=== PATIENT | male | born 1945 | race African-American/Black ===

== ENCOUNTER 2019-09-16 15:58 | Inpatient (IN) | payer MEDICARE, BC ==
[~2019-09-16] VITALS: Ht 182.9 cm; Wt 58.1 kg
[2019-09-16] MEDS ORDERED: LORAZEPAM 2MG/ML CPJ IV ONE ×2 (16:30→20:00)
[2019-09-16] MEDS ORDERED: HALOPERIDOL LACTATE 5MG/ML VIAL IM ONE (16:30)
[2019-09-16 17:15] LABS: HEMATOCRIT. 39.3 % (42.0-52.0); HEMOGLOBIN. 12.6 g/dL (14.0-18.0); MEAN CORPUSCULAR HEMOGLOBIN 26.7 pg (28.0-32.0); MEAN PLATELET VOLUME 8.3 fl (7.4-10.4); PLATELET 207 x1000/uL (130-400); RED BLOOD CELL COUNT 4.74 mill/uL (4.7-6.1); RED CELL DISTRIBUTION WIDTH 19.9 % (11.6-14.6)
[2019-09-16 17:21] LABS: PROTHROMBIN TIME 10.6 sec (9.6-11.0)
[2019-09-16 17:22] LABS: CHLORIDE 111 mEq/L (98-107)
[2019-09-16 17:29] LABS: ETHANOL BLOOD < 10 mg/dL
[2019-09-16 17:31] LABS: LDL CHOLESTEROL 82 mg/dL (5-100)
[2019-09-16 17:32] LABS: CREATINE KINASE 568 IU/L (39-308)
[2019-09-16] MEDS ORDERED: SODIUM CHLORIDE 0.9% 500 ML IV ONE ×2 (17:45→20:30)
[2019-09-16] MEDS ORDERED: ONDANSETRON HCL 4MG/2ML INJ IV ONE (17:45)
[2019-09-16] MEDS ORDERED: ASPIRIN 300MG SUPP PR ONE (18:00)
[2019-09-16 18:05] LABS: CLARITY URINE CLOUDY (CLEAR); COLOR URINE YELLOW (YELLOW); KETONES URINE NEGATIVE (NEGATIVE); LEUKOCYTE ESTERASE URINE TRACE (NEGATIVE); NITRITE URINE NEGATIVE (NEGATIVE); OCCULT BLOOD URINE 1+ (NEGATIVE); PROTEIN URINE 1+ (NEGATIVE); SPECIFIC GRAVITY URINE 1.016 (1.005-1.030); UROBILINOGEN URINE 0.2 E.U./dL (0.2-1.0)
[2019-09-16 18:10] LABS: PLATELET ESTIMATE NORMAL
[2019-09-16 18:18] LABS: *AMPHETAMINES SCREEN URINE NEGATIVE (NEGATIVE); *BARBITURATES SCREEN URINE NEGATIVE (NEGATIVE); *BENZODIAZEPINES SCREEN URINE NEGATIVE (NEGATIVE); *COCAINE SCREEN URINE NEGATIVE (NEGATIVE)
[2019-09-16 18:19] LABS: CANNABINOID URINE SCREEN PRESUMTIVE POSITIVE (NEGATIVE); METHADONE URINE SCREEN NEGATIVE (NEGATIVE); OPIATES URINE SCREEN NEGATIVE (NEGATIVE); PHENCYCLIDINE URINE SCREEN NEGATIVE (NEGATIVE)
[2019-09-16 18:24] LABS: BG BASE EXCESS -3.5 mmol/L (-2.0-2.0); BG CARBOXYHEMOGLOBIN 1.1 % (0.5-1.5); BG DEOXYHEMOGLOBIN 4.1 % (0.0-5.0); BG FRACTION INSPIRED OXYGEN 32; BG HCO3 ACT 23.9 mmol/L (22.0-26.0); BG METHEMOGLOBIN 0.2 % (0.0-1.5); BG OXYGEN SATURATION 95.8 % (92.0-98.5); BG OXYHEMOGLOBIN 94.6 % (94.0-97.0); BG PH 7.272 (7.350-7.450); BG PO2 91.7 mmHg (75.0-100.0); BG SAMPLE SITE RIGHT RADIAL; BG TOTAL HEMOGLOBIN 13.5 g/dL (12.0-18.0); BG VENT MODE NASAL CANNULA
[2019-09-16] MEDS ORDERED: LORAZEPAM 2MG/ML CPJ ONE (19:53)
[2019-09-16] MEDS ORDERED: PROPOFOL 10MG/ML 100ML 100 ML IV SCH (20:00)
[2019-09-16] MEDS ORDERED: IPRATROPIUM/ALBUTEROL 0.5-3(2.5)MG/3ML NEB NEB PRN (20:15)
[2019-09-16] MEDS ORDERED: LORAZEPAM 2MG/ML CPJ IV PRN (20:15)
[2019-09-16] MEDS ORDERED: DOCUSATE SODIUM 100MG CAPSULE PO PRN (20:15)
[2019-09-16] MEDS ORDERED: GUAIFENESIN 200MG/10ML SUGAR FREE UDC PO PRN (20:15)
[2019-09-16] MEDS ORDERED: HYDROCODONE/ACETAMINOPHEN 5/325MG TABLET PO PRN (20:15)
[2019-09-16] MEDS ORDERED: DIPHENHYDRAMINE 50MG/ML VIAL IV PRN (20:15)
[2019-09-16] MEDS ORDERED: ONDANSETRON HCL 4MG/2ML INJ IV PRN (20:15)
[2019-09-16] MEDS ORDERED: MAGNESIUM/ALUMINUM HYDROXIDE/SIMETHICONE 30ML UDC PO PRN (20:15)
[2019-09-16 20:51] LABS: BG BASE EXCESS -4.8 mmol/L (-2.0-2.0); BG CARBOXYHEMOGLOBIN 0.9 % (0.5-1.5); BG DEOXYHEMOGLOBIN 0.4 % (0.0-5.0); BG FRACTION INSPIRED OXYGEN 80; BG HCO3 ACT 21.7 mmol/L (22.0-26.0); BG METHEMOGLOBIN 0.4 % (0.0-1.5); BG OXYGEN SATURATION 99.6 % (92.0-98.5); BG OXYHEMOGLOBIN 98.3 % (94.0-97.0); BG PCO2 45.8 mmHg (35.0-45.0); BG PH 7.293 (7.350-7.450); BG PO2 291.2 mmHg (75.0-100.0); BG SAMPLE SITE RIGHT BRACHIAL; BG TIDAL VOLUME(mL) 500 mL; BG TOTAL HEMOGLOBIN 12.6 g/dL (12.0-18.0); BG VENT MODE VENT - A/C; BG VENT RATE 16 set
[2019-09-16] MEDS ORDERED: NA PHOS,M-B/NA PHOS,DI-BA ENEMA 118ML PR PRN (21:00)
[2019-09-16 23:16] LABS: CHLORIDE 114 mEq/L (98-107)
[2019-09-16] MEDS ORDERED: ENOXAPARIN 40MG/0.4ML SYR SUBCUT NR (23:45)
[2019-09-16] MEDS ORDERED: LEVOFLOXACIN 500MG PREMIX 100 ML IV NR (23:45)
[2019-09-17] VITALS (51 sets, daily range): BP systolic 112–184; BP diastolic 57–103
[2019-09-17] MEDS: DEXT 5%/0.45% NACL 1000ML 1,000 ML IV SCH (00:17)
[2019-09-17 02:40] LABS: BG BASE EXCESS -3.3 mmol/L (-2.0-2.0); BG CARBOXYHEMOGLOBIN 0.1 % (0.5-1.5); BG DEOXYHEMOGLOBIN 2.2 % (0.0-5.0); BG FRACTION INSPIRED OXYGEN 40; BG HCO3 ACT 21.6 mmol/L (22.0-26.0); BG OXYGEN SATURATION 97.8 % (92.0-98.5); BG OXYHEMOGLOBIN 97.7 % (94.0-97.0); BG PCO2 38.4 mmHg (35.0-45.0); BG PH 7.368 (7.350-7.450); BG PO2 105.6 mmHg (75.0-100.0); BG SAMPLE SITE RIGHT RADIAL; BG TIDAL VOLUME(mL) 500 mL; BG TOTAL HEMOGLOBIN 12.4 g/dL (12.0-18.0); BG VENT MODE VENT - A/C; BG VENT RATE 16 set
[2019-09-17] MEDS: PROPOFOL 10MG/ML 100ML 100 ML IV PRN ×4 (04:07→20:29)
[2019-09-17 06:23] LABS: HEMATOCRIT. 38.5 % (42.0-52.0); HEMOGLOBIN. 12.5 g/dL (14.0-18.0); MEAN CORPUSCULAR HEMOGLOBIN 26.9 pg (28.0-32.0); MEAN PLATELET VOLUME 8.5 fl (7.4-10.4); PLATELET 181 x1000/uL (130-400); RED BLOOD CELL COUNT 4.63 mill/uL (4.7-6.1); RED CELL DISTRIBUTION WIDTH 20.1 % (11.6-14.6)
[2019-09-17 06:36] LABS: CHLORIDE 113 mEq/L (98-107)
[2019-09-17 06:44] LABS: HDL CHOLESTEROL 36 mg/dL (40-59); LDL CHOLESTEROL 75 mg/dL (5-100)
[2019-09-17] MEDS: ASPIRIN 81MG EC TABLET PO SCH (08:36)
[2019-09-17] MEDS: ACETAMINOPHEN 325MG TABLET PO PRN ×2 (09:21→21:22)
[2019-09-17] MEDS: CLONIDINE 0.1MG TABLET PO PRN ×2 (09:22→20:10)
[2019-09-17] MEDS: MORPHINE SULFATE 2 MG/ML CPJ (NOT FOR IM USE) IV PRN ×2 (11:25→22:09)
[2019-09-17] MEDS ORDERED: IOHEXOL-350 100 ML BOTTLE ONE (11:41)
[2019-09-17] MEDS ORDERED: GADOBENATE DIMEGLUMINE 529 MG/ML 10ML IV ONE (12:01)
[2019-09-17 12:28] LABS: PLATELET ESTIMATE NORMAL
[2019-09-17] MEDS: BUDESONIDE 0.5MG/2ML NEB HHN SCH ×2 (13:00→20:16)
[2019-09-17] MEDS ORDERED: PIPERACILLIN/TAZOBACTAM 3.375 G/VIAL IV SCH (14:00)
[2019-09-17] MEDS: PIPERACILLIN/TAZOBACTAM 3.375 G in DEXT 5% WATER 100 ML IV SCH ×2 (14:12→21:01)
[2019-09-17] MEDS: IPRATROPIUM/ALBUTEROL 0.5-3(2.5)MG/3ML NEB HHN SCH ×2 (15:00→20:16)
[2019-09-17] MEDS ORDERED: LEVOFLOXACIN 500MG PREMIX 100 ML IV SCH (21:00)
[2019-09-17] MEDS: ENOXAPARIN 40MG/0.4ML SYR SUBCUT SCH (21:02)
[2019-09-17] MEDS ORDERED: PROPOFOL 10MG/ML 100ML 100 ML IV PRN (23:45)
[2019-09-18] VITALS (78 sets, daily range): BP systolic 123–198; BP diastolic 39–94
[2019-09-18] MEDS ORDERED: PROC10TA17 MT (00:40)
[2019-09-18] MEDS ORDERED: RAMI5CAP65 MT (00:40)
[2019-09-18] MEDS ORDERED: TRAM50TA3 MT (00:40)
[2019-09-18] MEDS ORDERED: DORZ10DR9 EACHEYE (00:40)
[2019-09-18] MEDS ORDERED: VIAG100 MT (00:40)
[2019-09-18] MEDS ORDERED: ALBU90AE IH (00:40)
[2019-09-18] MEDS ORDERED: ASPI-986 MT (00:40)
[2019-09-18] MEDS ORDERED: LATA2.5D2 EACHEYE (00:40)
[2019-09-18] MEDS ORDERED: ONDA4TAB11 PO (00:40)
[2019-09-18] MEDS ORDERED: CHOL200059 MT (00:40)
[2019-09-18] MEDS ORDERED: BUDE6HFA INH (00:40)
[2019-09-18] MEDS ORDERED: ALBU05 IH (00:40)
[2019-09-18] MEDS ORDERED: OMEP20CA14 MT (00:40)
[2019-09-18] MEDS ORDERED: ALFU10TA9 PO (00:40)
[2019-09-18] MEDS ORDERED: CARV6.2548 MT (00:40)
[2019-09-18] MEDS ORDERED: CLOP75TA33 MT (00:40)
[2019-09-18] MEDS ORDERED: CRES10 MT (00:40)
[2019-09-18] MEDS ORDERED: BRIM10DR2 EACHEYE (00:40)
[2019-09-18] MEDS: DEXT 5%/0.45% NACL 1000ML 1,000 ML IV SCH (00:41)
[2019-09-18] MEDS: PROPOFOL 10MG/ML 100ML 100 ML IV PRN (01:26)
[2019-09-18] MEDS: AMLODIPINE 10MG TABLET PO SCH ×2 (01:26→08:12)
[2019-09-18] MEDS ORDERED: CLONIDINE 0.2MG TABLET PO ONE (01:30)
[2019-09-18] MEDS: IPRATROPIUM/ALBUTEROL 0.5-3(2.5)MG/3ML NEB HHN SCH ×4 (02:04→20:15)
[2019-09-18] MEDS: PIPERACILLIN/TAZOBACTAM 3.375 G in DEXT 5% WATER 100 ML IV SCH ×3 (03:34→20:12)
[2019-09-18] MEDS: CLONIDINE 0.1MG TABLET PO PRN ×3 (04:27→20:12)
[2019-09-18 06:18] LABS: HEMATOCRIT. 41.7 % (42.0-52.0); HEMOGLOBIN. 13.3 g/dL (14.0-18.0); MEAN CORPUSCULAR HEMOGLOBIN 26.9 pg (28.0-32.0); MEAN CORPUSCULAR VOLUME 84.2 fL (80.0-94.0); MEAN PLATELET VOLUME 8.5 fl (7.4-10.4); PLATELET 166 x1000/uL (130-400); RED BLOOD CELL COUNT 4.95 mill/uL (4.7-6.1); RED CELL DISTRIBUTION WIDTH 20.3 % (11.6-14.6)
[2019-09-18 07:21] LABS: CHLORIDE 113 mEq/L (98-107)
[2019-09-18] MEDS: ASPIRIN 81MG EC TABLET PO SCH (08:12)
[2019-09-18] MEDS: BUDESONIDE 0.5MG/2ML NEB HHN SCH ×2 (08:17→20:15)
[2019-09-18 08:46] LABS: BG BASE EXCESS 2.2 mmol/L (-2.0-2.0); BG CARBOXYHEMOGLOBIN 0.7 % (0.5-1.5); BG DEOXYHEMOGLOBIN 1.6 % (0.0-5.0); BG FRACTION INSPIRED OXYGEN 35; BG HCO3 ACT 26.3 mmol/L (22.0-26.0); BG METHEMOGLOBIN 0.3 % (0.0-1.5); BG OXYGEN SATURATION 98.4 % (92.0-98.5); BG OXYHEMOGLOBIN 97.4 % (94.0-97.0); BG PH 7.446 (7.350-7.450); BG PO2 112.3 mmHg (75.0-100.0); BG SAMPLE SITE RIGHT RADIAL; BG TIDAL VOLUME(mL) 500 mL; BG TOTAL HEMOGLOBIN 13.3 g/dL (12.0-18.0); BG VENT MODE VENT - A/C; BG VENT RATE 14 set
[2019-09-18 09:05] LABS: PLATELET ESTIMATE NORMAL
[2019-09-18] MEDS: BRIMONIDINE 0.2% OPHTH DROPS 5ML EACHEYE SCH ×2 (11:56→16:11)
[2019-09-18 11:57] LABS: BG BASE EXCESS -0.9 mmol/L (-2.0-2.0); BG CARBOXYHEMOGLOBIN 0.4 % (0.5-1.5); BG DEOXYHEMOGLOBIN 2.3 % (0.0-5.0); BG FRACTION INSPIRED OXYGEN 35; BG HCO3 ACT 23.4 mmol/L (22.0-26.0); BG METHEMOGLOBIN 0.3 % (0.0-1.5); BG OXYGEN SATURATION 97.7 % (92.0-98.5); BG PCO2 37.8 mmHg (35.0-45.0); BG PO2 104.2 mmHg (75.0-100.0); BG PRESSURE SUPPORT 8; BG SAMPLE SITE RIGHT RADIAL; BG TOTAL HEMOGLOBIN 13.7 g/dL (12.0-18.0); BG VENT MODE VENT - CPAP
[2019-09-18] MEDS: TIMOLOL MALEATE 0.25% OPHTH DROPS 5ML EACHEYE SCH ×2 (11:57→20:12)
[2019-09-18 17:04] LABS: T4 FREE 1.34 ng/dL (0.76-1.46)
[2019-09-18 17:05] LABS: CREATINE KINASE MB FRACTION 2.4 ng/mL (0.5-3.6)
[2019-09-18] MEDS: ENOXAPARIN 40MG/0.4ML SYR SUBCUT SCH (20:11)
[2019-09-18] MEDS: MORPHINE SULFATE 2 MG/ML CPJ (NOT FOR IM USE) IV PRN (22:18)
[2019-09-18 23:49] LABS: CREATINE KINASE MB FRACTION 1.8 ng/mL (0.5-3.6)
[2019-09-19] VITALS (29 sets, daily range): BP systolic 87–177; BP diastolic 44–124
[2019-09-19] MEDS: IPRATROPIUM/ALBUTEROL 0.5-3(2.5)MG/3ML NEB HHN SCH ×4 (01:49→21:33)
[2019-09-19] MEDS: HYDRALAZINE HCL 50MG TABLET PO SCH ×4 (01:57→17:56)
[2019-09-19] MEDS: DEXT 5%/0.45% NACL 1000ML 1,000 ML IV SCH ×2 (03:05→21:57)
[2019-09-19] MEDS: PIPERACILLIN/TAZOBACTAM 3.375 G in DEXT 5% WATER 100 ML IV SCH ×3 (04:18→21:58)
[2019-09-19 05:52] LABS: BASOPHILS % 0.4 % (0.0-2.0); EOSINOPHILS % 0.2 % (0.0-5.0); HEMATOCRIT. 41.7 % (42.0-52.0); HEMOGLOBIN. 13.5 g/dL (14.0-18.0); LYMPHOCYTES % 21.4 % (20.0-50.0); MEAN CORPUSCULAR HEMOGLOBIN 26.7 pg (28.0-32.0); MEAN CORPUSCULAR VOLUME 82.3 fL (80.0-94.0); MEAN PLATELET VOLUME 8.4 fl (7.4-10.4); MONOCYTES % 14.7 % (2.0-8.0); NEUTROPHILS % 63.3 % (40.0-76.0); PLATELET 185 x1000/uL (130-400); RED BLOOD CELL COUNT 5.06 mill/uL (4.7-6.1); RED CELL DISTRIBUTION WIDTH 19.7 % (11.6-14.6)
[2019-09-19 06:32] LABS: CHLORIDE 109 mEq/L (98-107)
[2019-09-19 06:53] LABS: CREATINE KINASE MB FRACTION 1.6 ng/mL (0.5-3.6)
[2019-09-19 07:03] LABS: CREATINE KINASE 2969 IU/L (39-308)
[2019-09-19] MEDS: BUDESONIDE 0.5MG/2ML NEB HHN SCH ×2 (08:08→21:33)
[2019-09-19] MEDS: AMLODIPINE 10MG TABLET PO SCH (08:16)
[2019-09-19] MEDS: ASPIRIN 81MG EC TABLET PO SCH (08:16)
[2019-09-19] MEDS: TIMOLOL MALEATE 0.25% OPHTH DROPS 5ML EACHEYE SCH ×2 (08:16→21:58)
[2019-09-19] MEDS: BRIMONIDINE 0.2% OPHTH DROPS 5ML EACHEYE SCH ×2 (08:16→16:09)
[2019-09-19] MEDS ORDERED: POTASSIUM CHLORIDE INJ 40 MEQ in DEXT 5% WATER 250 ML IV NR (09:00)
[2019-09-19] MEDS ORDERED: POTASSIUM CHLORIDE 20MEQ TABLET SR PO SCH (14:00)
[2019-09-19] MEDS ORDERED: MAGNESIUM 2 G PREMIX 50 ML IV NR (15:00)
[2019-09-19] MEDS: ENOXAPARIN 40MG/0.4ML SYR SUBCUT SCH (21:58)
[2019-09-20] VITALS: BP 124/67
[2019-09-20] MEDS: IPRATROPIUM/ALBUTEROL 0.5-3(2.5)MG/3ML NEB HHN SCH ×4 (01:30→21:31)
[2019-09-20] MEDS: HYDRALAZINE HCL 50MG TABLET PO SCH ×4 (01:39→18:00)
[2019-09-20] MEDS: PIPERACILLIN/TAZOBACTAM 3.375 G in DEXT 5% WATER 100 ML IV SCH ×3 (03:47→21:02)
[2019-09-20 04:00] VITALS: BP 108/53
[2019-09-20 07:14] LABS: CHLORIDE 111 mEq/L (98-107)
[2019-09-20 08:00] VITALS: BP 121/97
[2019-09-20] MEDS ORDERED: REGADENOSON 0.4 MG/5 ML IV NR (08:00)
[2019-09-20] MEDS: BUDESONIDE 0.5MG/2ML NEB HHN SCH (08:05)
[2019-09-20] MEDS: TIMOLOL MALEATE 0.25% OPHTH DROPS 5ML EACHEYE SCH ×2 (08:23→21:03)
[2019-09-20] MEDS: AMLODIPINE 10MG TABLET PO SCH (08:23)
[2019-09-20] MEDS: ASPIRIN 81MG EC TABLET PO SCH (08:23)
[2019-09-20] MEDS: BRIMONIDINE 0.2% OPHTH DROPS 5ML EACHEYE SCH ×2 (08:23→18:00)
[2019-09-20] MEDS ORDERED: POTASSIUM CHLORIDE 20MEQ TABLET SR PO STA (09:20)
[2019-09-20 12:00] VITALS: BP 132/68
[2019-09-20] MEDS ORDERED: REGADENOSON 0.4 MG/5 ML IV ONE (14:35)
[2019-09-20 16:00] VITALS: BP 131/65
[2019-09-20 20:00] VITALS: BP 114/56
[2019-09-20] MEDS: ENOXAPARIN 40MG/0.4ML SYR SUBCUT SCH (21:03)
[2019-09-20] MEDS: DEXT 5%/0.45% NACL 1000ML 1,000 ML IV SCH (21:03)
[2019-09-21] VITALS: BP 118/60
[2019-09-21] MEDS: IPRATROPIUM/ALBUTEROL 0.5-3(2.5)MG/3ML NEB HHN SCH ×2 (02:15→09:00)
[2019-09-21] MEDS: HYDRALAZINE HCL 50MG TABLET PO SCH ×3 (02:50→11:58)
[2019-09-21] MEDS: PIPERACILLIN/TAZOBACTAM 3.375 G in DEXT 5% WATER 100 ML IV SCH (02:50)
[2019-09-21 04:00] VITALS: BP 118/54
[2019-09-21 07:36] LABS: CHLORIDE 112 mEq/L (98-107)
[2019-09-21 07:43] LABS: BASOPHILS % 0.3 % (0.0-2.0); EOSINOPHILS % 1.3 % (0.0-5.0); HEMATOCRIT. 40.2 % (42.0-52.0); HEMOGLOBIN. 12.9 g/dL (14.0-18.0); LYMPHOCYTES % 22.9 % (20.0-50.0); MEAN CORPUSCULAR HEMOGLOBIN 26.5 pg (28.0-32.0); MEAN CORPUSCULAR VOLUME 82.5 fL (80.0-94.0); MEAN PLATELET VOLUME 8.6 fl (7.4-10.4); MONOCYTES % 14.8 % (2.0-8.0); NEUTROPHILS % 60.7 % (40.0-76.0); PLATELET 207 x1000/uL (130-400); RED BLOOD CELL COUNT 4.88 mill/uL (4.7-6.1)
[2019-09-21 08:00] VITALS: BP 133/68
[2019-09-21] MEDS: TIMOLOL MALEATE 0.25% OPHTH DROPS 5ML EACHEYE SCH (09:26)
[2019-09-21] MEDS: ASPIRIN 81MG EC TABLET PO SCH (09:26)
[2019-09-21] MEDS: AMLODIPINE 10MG TABLET PO SCH (09:26)
[2019-09-21] MEDS: BRIMONIDINE 0.2% OPHTH DROPS 5ML EACHEYE SCH (11:59)
[2019-09-21 12:00] VITALS: BP 134/64
[2019-09-21 12:05] VITALS: BP 134/65
== END 2019-09-21 13:06 | disposition home health service (06) | DRG 133 ==
LOC: ER 15:58 → EDBEDREQTM 19:41 → EDBEDREQSVC 19:41 → EDBEDREQ 19:41 → ENRESERV 09-17 00:58 → CVICU 09-17 01:35 → 5WST 09-19 14:12
PROVIDERS: ADMIT Internal Medicine; ATTEND Internal Medicine
PROC: 5A1945Z Respiratory Ventilation, 24-96 Consecutive Hours (ICD-10-PCS; principal; 2019-09-16)
PROC: 0BH17EZ Insertion of Endotracheal Airway into Trachea, Via Natural or Artificial Opening (ICD-10-PCS; 2019-09-16)
DX: J96.02 Acute respiratory failure with hypercapnia (principal); I21.4 Non-ST elevation (NSTEMI) myocardial infarction; G93.41 Metabolic encephalopathy; E46 Unspecified protein-calorie malnutrition; E87.2 Acidosis; J44.1 Chronic obstructive pulmonary disease with (acute) exacerbation; Z94.89 Other transplanted organ and tissue status; R65.10 Systemic inflammatory response syndrome (SIRS) of non-infectious origin without acute organ dysfunction; M62.82 Rhabdomyolysis; D64.9 Anemia, unspecified; I71.4 Abdominal aortic aneurysm, without rupture; E86.0 Dehydration; B19.20 Unspecified viral hepatitis C without hepatic coma; D72.825 Bandemia; E87.6 Hypokalemia; H40.9 Unspecified glaucoma; I10 Essential (primary) hypertension; H54.7 Unspecified visual loss; M48.02 Spinal stenosis, cervical region; I25.10 Atherosclerotic heart disease of native coronary artery without angina pectoris; Z79.02 Long term (current) use of antithrombotics/antiplatelets; Z80.0 Family history of malignant neoplasm of digestive organs; Z79.51 Long term (current) use of inhaled steroids; Z79.899 Other long term (current) drug therapy; Z82.49 Family history of ischemic heart disease and other diseases of the circulatory system; Z95.5 Presence of coronary angioplasty implant and graft; Z87.891 Personal history of nicotine dependence; Z68.1 Body mass index [BMI] 19.9 or less, adult; I69.398 Other sequelae of cerebral infarction
CPT/HCPCS: 31500; 36415; 36600; 70496; 70498; 70551; 71045; 71275; 72156; 78452; 80048; 80053; 80061; 80305; 80320; 81003; 82140; 82375; 82550; 82553; 82805; 82962; 83036; 83605; 83721; 83735; 83880; 84132; 84439; 84443; 84478; 84484; 85025; 85379; 87070; 87804; 92610; 93005; 93017; 93306; 93970; 94002; 94003; 94640; 97162; 97165; 99291; A9500; A9577; J1200; J1630; J1650; J1956; J2060; J2270; J2405; J2543; J2704; J2785; J3475; J3480; J7040; J7060; J7620; J7626; Q9967; A4315; G0480

== ENCOUNTER 2021-12-28 03:18 | Emergency (ER) | payer MEDICARE, BC ==
[~2021-12-28] VITALS: Ht 177.8 cm; Wt 80.0 kg
[~2021-12-28 03:18] MED LIST: ALBU05 IH; ALBU90AE IH; ALFU10TA9 PO; ASPI-986 MT; BRIM10DR2 EACHEYE; BUDE6HFA INH; CARV6.2548 MT; CHOL200059 MT; CLOP75TA33 MT; CRES10 MT; DORZ10DR9 EACHEYE; LATA2.5D14 EACHEYE; OMEP20CA14 MT; ONDA4TAB11 PO; PROC10TA17 MT; RAMI5CAP65 MT; TRAM50TA3 MT; VIAG100 MT
[2021-12-28] MEDS ORDERED: LEVETIRACETAM 1000MG PREMIX 100 ML IV ONE (04:15)
[2021-12-28 04:56] LABS: BASOPHILS % 0.2 % (0.0-2.0); EOSINOPHILS % 0.4 % (0.0-5.0); HEMATOCRIT. 39.2 % (42.0-52.0); HEMOGLOBIN. 13.2 g/dL (14.0-18.0); LYMPHOCYTES % 19.9 % (20.0-50.0); MEAN CORPUSCULAR HEMOGLOBIN 29.5 pg (28.0-32.0); MEAN CORPUSCULAR VOLUME 87.9 fL (80.0-94.0); MEAN PLATELET VOLUME 8.2 fl (7.4-10.4); MONOCYTES % 10.1 % (2.0-8.0); NEUTROPHILS % 69.4 % (40.0-76.0); PLATELET 148 x1000/uL (130-400); RED BLOOD CELL COUNT 4.46 mill/uL (4.7-6.1); RED CELL DISTRIBUTION WIDTH 20.2 % (11.6-14.6)
[2021-12-28] MEDS ORDERED: KEPP500 MT (06:49)
[2021-12-28 06:57] LABS: CLARITY URINE CLEAR (CLEAR); COLOR URINE YELLOW (YELLOW); KETONES URINE NEGATIVE (NEGATIVE); LEUKOCYTE ESTERASE URINE NEGATIVE (NEGATIVE); NITRITE URINE NEGATIVE (NEGATIVE); OCCULT BLOOD URINE NEGATIVE (NEGATIVE); PROTEIN URINE 1+ (NEGATIVE)
[2021-12-28 07:07] LABS: CHLORIDE 110 mEq/L (98-107)
[2021-12-28 07:09] LABS: ETHANOL BLOOD < 10 mg/dL
[2021-12-28 07:13] LABS: *AMPHETAMINES SCREEN URINE NEGATIVE (NEGATIVE); *BARBITURATES SCREEN URINE NEGATIVE (NEGATIVE); *BENZODIAZEPINES SCREEN URINE NEGATIVE (NEGATIVE); *COCAINE SCREEN URINE NEGATIVE (NEGATIVE); CANNABINOID URINE SCREEN PRESUMTIVE POSITIVE (NEGATIVE); METHADONE URINE SCREEN NEGATIVE (NEGATIVE); OPIATES URINE SCREEN NEGATIVE (NEGATIVE); PHENCYCLIDINE URINE SCREEN NEGATIVE (NEGATIVE)
[2021-12-28 09:33] VITALS: BP 145/65
== END 2021-12-28 10:58 | disposition home or self-care (01) ==
LOC: ER 03:18
DX: R56.9 Unspecified convulsions (principal); I10 Essential (primary) hypertension; Z79.82 Long term (current) use of aspirin; Z86.73 Personal history of transient ischemic attack (TIA), and cerebral infarction without residual deficits; Z79.899 Other long term (current) drug therapy
CPT/HCPCS: 36415; 70450; 80053; 80305; 80320; 81003; 84484; 85025; 93005; 96365; 96366; 99285; J1953; Z7610; G0480